=== PATIENT | male | born 1965 | race Caucasian/White ===

== ENCOUNTER 2016-12-05 17:51 | Emergency (ER) | payer BC ==
[~2016-12-05] VITALS: Ht 188 cm; Wt 78.5 kg
--- NOTE | ~2016-12-05 | CT4 ---
[facility] A Service of [facility] RADIOLOGY TEXT RESULTS PATIENT: ADDISON RAM LOCATION: CFTX : 61 UNIT #: [id number] AGE: [address]: April Hwang SEX: M ORDER DR: [id number] [facility] [address] [place], [place] [address] [id number] E MR#: [id number] Acc #: [id number] NAME: ADDISON RAM : 1965 SEX: M STUDY DATE/TIME: 12/05/2016 18:38 UNIT: CFAL ROOM: STUDY DESCRIPTION: CT Abd and Pelv Wo Cont Attending Physician: April Hwang P.A.-C. Ordering Physician: April Hwang P.A.-C. Primary Care Physician: Vick Briggs M.D. MEDICAL IMAGING REPORT This report is preliminary unless electronic signature is present EXAM Abdomen and pelvis CT, no contrast, 12/05/2016. INDICATIONS Flank pain on the right today, right lower quadrant pain. TECHNIQUE Noncontrast CT abdomen and pelvis was performed. We have no comparisons. This CT exam was performed with one or more of the following radiation dose reduction techniques: automatic exposure control, adjustment of mA and/or kV according to patient size, and iterative reconstruction. FINDINGS CT ABDOMEN Exam degraded by noncontrast technique. Included lung bases demonstrate mild emphysema and atelectatic change in the lower lobes, left greater than right. No effusion. Aorta unremarkable. The spleen, adrenal glands, pancreas, gallbladder and liver are unremarkable and the kidneys are normal. CT PELVIS Bladder and prostate unremarkable. No drainable fluid collection in the pelvis. The appendix is normal. There is a small area of fat necrosis or epiploic appendagitis to the left of midline adjacent to the proximal sigmoid colon. Inguinal canals are unremarkable. No free air. No suspicious bone lesion. IMPRESSION 1. No clearly acute process identified. No bowel obstruction, drainable fluid collection or focal area of inflammatory change. [facility] A Service [facility] RADIOLOGY TEXT RESULTS PATIENT: ADDISON RAM LOCATION: CFTX : 61 UNIT #: [id number] AGE: [address]: April Hwang SEX: M ORDER DR: 2. The appendix is normal. 3. Incidental area of fat necrosis or epiploic appendagitis to the left of midline adjacent to the proximal sigmoid colon. Dictated by... Jamari Leal M.D. THIS IS AN ELECTRONICALLY VERIFIED REPORT Jamari Leal M.D. at 12/06/2016 11:23 AM Naya TD: 12/06/2016 10:12 JOB #: [id number] MEDICAL IMAGING REPORT Page 1 of 1 COPY
[~2016-12-05 17:51] MED LIST: AMBIEN10 MG PO; FLEXERIL10 MG PO; GABAPENTIN400 M2 PO; KLONOPIN1 MG PO; NAPROSYN500 MG PO; NORCO 10/3251 TAB PO; PERCOCET PO; SIMVASTATIN40 MG PO
[2016-12-05 19:19] LABS: ALBUMIN SERUM 4.6 g/dL (3.5-5.0); BILIRUBIN, DIRECT 0.1 mg/dL (0.0-0.2); BILIRUBIN,INDIRECT 0.6 mg/dL (0.0-0.9); BILIRUBIN,TOTAL 0.7 mg/dL (0.2-2.0); BUN/CREATININE RATIO 16.36; CALCIUM SERUM 9.3 mg/dL (8.4-10.2); CREATININE SERUM 1.1 mg/dL (0.6-1.4); GLOM FILT RATE Estimated 76.3 mL/min (>60); POTASSIUM 3.4 mmol/L (3.5-5.1)
[2016-12-05 19:34] LABS: BASOPHIL# 0.1 X10e3 (0-0.3); BASOPHIL% 0.7 % (0-2.5); EOSINOPHIL% 0.2 % (0.0-7.0); HEMATOCRIT 38.5 % (38.0-50.0); HEMOGLOBIN 12.8 gm/dL (13.0-16.0); LYMPHOCYTE# 1.7 X10e3 (1.0-3.5); MEAN CELL VOLUME 89.5 FL (83-96); MEAN CORPUSCULAR HEMOGLOBIN 29.8 PG (28-34); MEAN CORPUSCULAR HGB CONC 33.3 g/dL (30-36); MEAN PLATELET VOLUME 8.3 FL (6.5-11.5); MONOCYTE# 0.6 X10e3 (0-1.0); MONOCYTE% 6.7 % (3.0-12.0); NEUTROPHIL% 74.4 % (40-75); PLATELET COUNT 304 X10e3 (140-420); RED CELL DISTRIBUTION WIDTH 14.5 % (11.0-15.5); WHITE BLOOD COUNT 9.5 X10e3 (4.0-10.5)
[2016-12-05 19:36] LABS: DIFF IND NO
== END 2016-12-05 19:50 | disposition home or self-care (01) ==
LOC: CFTX 17:51 → CED 17:51 → CFTX 18:19
PROVIDERS: Physician Assistant
DX: K63.89 Other specified diseases of intestine (principal); I10 Essential (primary) hypertension; E78.5 Hyperlipidemia, unspecified
CPT/HCPCS: 36415; 74176; 80048; 80076; 83690; 85025; 96374; 99284; J1885